=== PATIENT | female | born 1955 | race Caucasian/White ===

== ENCOUNTER 2017-10-20 14:36 | Inpatient (IN) | payer OTHER ==
[~2017-10-20] VITALS: Ht 172.7 cm; Wt 130.8 kg
[2017-10-20] MEDS ORDERED: PROPOFOL 100 ML IV ONE (14:43)
[2017-10-20] MEDS ORDERED: SODIUM CHLORIDE 0.9% 1,000 ML IV ONE (14:50)
[2017-10-20] MEDS ORDERED: PLEASE ENTER ALLERGIES MC SCH (15:00)
[2017-10-20] MEDS ORDERED: ETOMIDATE 20 MG/10 ML IV ONE (15:00)
[2017-10-20] MEDS ORDERED: SUCCINYLCHOLINE 20 MG/ML, 10ML IVPush ONE (15:00)
[2017-10-20] MEDS ORDERED: PLEASE ENTER HEIGHT AND WEIGHT MC SCH (15:00)
[2017-10-20] MEDS ORDERED: SODIUM CHLORIDE FLUSH 10ML SYR IVF ONE (15:00)
[2017-10-20 15:14] LABS: INTERNATIONAL NORMALIZED RATIO 1.52 (0.93-1.1); PROTHROMBIN TIME 15.5 Seconds (9.6-11.5)
[2017-10-20] MEDS ORDERED: EPINEPHRINE SYRINGE 0.1 MG/ML, 10ML ONE (15:14)
[2017-10-20] MEDS ORDERED: ETOMIDATE 20 MG/10 ML ONE (15:14)
[2017-10-20] MEDS ORDERED: SUCCINYLCHOLINE 20 MG/ML, 10ML ONE (15:14)
[2017-10-20] MEDS ORDERED: CODE BLUE RESPONSE XX ONE (15:15)
[2017-10-20 15:16] LABS: ALANINE AMINOTRANSFERASE 103 U/L (12-78); ALBUMIN 2.1 g/dL (3.4-5.0); CALCIUM 7.8 mg/dL (8.5-10.1); CHLORIDE 77 mmol/L (98-107)
[2017-10-20] MEDS: PROPOFOL 100 ML IV PRN (15:20)
[2017-10-20 15:21] LABS: ALKALINE PHOSPHATASE 566 U/L (45-117); BILIRUBIN,TOTAL 10.9 mg/dL (0.2-1.0); CREATININE 0.73 mg/dL (0.55-1.02); TOTAL PROTEIN 6.6 g/dL (6.4-8.2); TROPONIN I < 0.015 ng/mL (0.000-0.045)
[2017-10-20 15:22] LABS: BASOPHILS # (AUTO) 0.08 x10^3/uL (0-0.1); BASOPHILS % (AUTO) 1 % (0-1); EOSINOPHILS % (AUTO) 0 % (1-7); LYMPHOCYTES # (AUTO) 2.97 x10^3/uL (1-3.4); LYMPHOCYTES % (AUTO) 34 % (22-44); MD MORPH REVIEW ONLY; MEAN CORPUSCULAR HEMOGLOBIN 37.9 pg (27.0-34.8); MEAN CORPUSCULAR HGB CONC 34.6 g/dL (32.4-35.8); MEAN CORPUSCULAR VOLUME 109.6 fL (80-100); MEAN PLATELET VOLUME 8.1 fL (7.4-10.4); MONOCYTES % (AUTO) 1 % (2-9); NEUTROPHILS # (AUTO) 5.51 x10^3/uL (1.8-6.8); NEUTROPHILS % (AUTO) 64 % (42-75); PLATELET COUNT 76 x10^3/uL (130-400); RED CELL DISTRIBUTION WIDTH 15.8 % (9.6-15.2)
[2017-10-20 15:23] LABS: <PLATELET ESTIMATE> DECREASED; ANISOCYTOSIS 1+; LARGE PLATELETS 1+
[2017-10-20 15:31] LABS: ANION GAP 15 mmol/L (5-15)
[2017-10-20] MEDS ORDERED: HYDROmorphone 1 MG/ML, 1ML IV STA (15:49)
[2017-10-20] MEDS ORDERED: MIDAZOLAM 1 MG/ML, 5ML ONE (15:57)
[2017-10-20] MEDS ORDERED: HYDROmorphone 2 MG/ML, 1ML ONE (15:57)
[2017-10-20] MEDS ORDERED: MIDAZOLAM 1 MG/ML, 5ML IVP ONE (16:00)
[2017-10-20] MEDS ORDERED: VANCOMYCIN PER PHARMACY MC ONE (16:30)
[2017-10-20] MEDS ORDERED: PIPERACILLIN/TAZO/PMX 3.375GM 50 ML IVPB ONE (16:30)
[2017-10-20] MEDS ORDERED: DOPAMINE/D5W PMX 250 ML ONE (16:59)
[2017-10-20] MEDS ORDERED: VANCOMYCIN 1,800 MG in SODIUM CHLORIDE 0.9% 250 ML IV ONE (17:00)
[2017-10-20] MEDS ORDERED: POLYETHYLENE GLYCOL 17 GM PACKET PO PRN (17:00)
[2017-10-20] MEDS ORDERED: VANCOMYCIN PER PHARMACY MC PRN (17:00)
[2017-10-20] MEDS ORDERED: ACETAMINOPHEN 325 MG TABLET PO PRN (17:00)
[2017-10-20] MEDS ORDERED: OXYcodone IR 5MG TABLET PO PRN (17:00)
[2017-10-20] MEDS ORDERED: LORazepam 2 MG/ML, 1ML IVPush PRN (17:00)
[2017-10-20] MEDS ORDERED: ONDANSETRON 2MG/ML, 2ML IVPush PRN (17:00)
[2017-10-20] MEDS: DOPAMINE/D5W PMX 250 ML IV PRN (17:05)
[2017-10-20] MEDS ORDERED: LIDOCAINE-MPF 1%, 2ML ENDO PRN (17:30)
[2017-10-20] MEDS ORDERED: PHARMACY MAY ADJ FOR RENAL FX MC SCH (17:30)
[2017-10-20 17:37] LABS: TROPONIN I < 0.015 ng/mL (0.000-0.045)
[2017-10-20] MEDS ORDERED: OMNIPAQUE 350 MG/ML, 100ML BOTTLE ONE (17:56)
[2017-10-20] MEDS ORDERED: PIPERACILLIN/TAZO/PMX 3.375GM 50 ML ONE (17:59)
[2017-10-20] MEDS: PIPERACILLIN/TAZO/PMX 3.375GM 50 ML IV SCH ×2 (18:30→22:19)
[2017-10-20] MEDS ORDERED: methylPREDNISolone SOD SUCC 125 MG/2 ML ONE (18:32)
[2017-10-20] MEDS ORDERED: HEPARIN 5,000 UNITS/ML, 1ML ONE (18:32)
[2017-10-20] MEDS: methylPREDNISolone SOD SUCC 125 MG/2 ML IVPush SCH ×2 (18:33→22:19)
[2017-10-20] MEDS: HEPARIN 5,000 UNITS/ML, 1ML SQ SCH (18:33)
[2017-10-20 19:16] LABS: MICROSCOPIC INDICATED
[2017-10-20 19:28] LABS: CULTURE INDICATED? YES
[2017-10-20] MEDS: SODIUM CHLORIDE 0.9% 1,000 ML IV SCH (19:45)
[2017-10-20] MEDS ORDERED: PHARMACOKINETIC MONITORING MC PRN (20:00)
[2017-10-20] MEDS ORDERED: PHARMACOKINETIC CONSULTATION MC ONE (20:00)
[2017-10-20] MEDS: OCULAR LUBRICANT OPHTH OINT 3.5 GM EACHEYE SCH (21:00)
[2017-10-20] MEDS: LACTULOSE 10 GM/15 ML UDC PO SCH (21:31)
[2017-10-20] MEDS ORDERED: ALBUTEROL/IPRATROPIUM 2.5MG/0.5MG, 3 ML ONE (22:52)
[2017-10-20 23:23] LABS: TROPONIN I < 0.015 ng/mL (0.000-0.045)
[2017-10-21] MEDS: HEPARIN 5,000 UNITS/ML, 1ML SQ SCH ×2 (00:19→09:00)
[2017-10-21] MEDS: DOPAMINE/D5W PMX 250 ML IV PRN (00:22)
[2017-10-21] MEDS ORDERED: SODIUM CHLORIDE 3% 500 ML IV PRN (02:00)
[2017-10-21] MEDS: OCULAR LUBRICANT OPHTH OINT 3.5 GM EACHEYE SCH ×4 (02:32→20:51)
[2017-10-21] MEDS: SODIUM CHLORIDE 0.9% 1,000 ML IV SCH (02:32)
[2017-10-21] MEDS: PROPOFOL 100 ML IV PRN ×3 (02:59→20:59)
[2017-10-21 04:00] VITALS: BP 96/53
[2017-10-21 04:24] LABS: MEAN CORPUSCULAR HEMOGLOBIN 38.5 pg (27.0-34.8); MEAN CORPUSCULAR HGB CONC 35.7 g/dL (32.4-35.8); MEAN CORPUSCULAR VOLUME 107.7 fL (80-100); MEAN PLATELET VOLUME 7.8 fL (7.4-10.4); PLATELET COUNT 60 x10^3/uL (130-400); RED BLOOD COUNT 2.84 x10^6/uL (3.82-5.3); RED CELL DISTRIBUTION WIDTH 16.4 % (9.6-15.2)
[2017-10-21 04:31] LABS: ALANINE AMINOTRANSFERASE 96 U/L (12-78); ALBUMIN 1.8 g/dL (3.4-5.0); ANION GAP 10 mmol/L (5-15); CALCIUM 7.8 mg/dL (8.5-10.1); CHLORIDE 80 mmol/L (98-107); CREATININE 0.86 mg/dL (0.55-1.02)
[2017-10-21 04:35] LABS: ALKALINE PHOSPHATASE 440 U/L (45-117); BILIRUBIN,TOTAL 10.6 mg/dL (0.2-1.0); CHOL/HDL RATIO 9.8; CHOLESTEROL, TOTAL 127 mg/dL (140-239); HDL CHOL % 10 % (28-40); HDL CHOLESTEROL (DIRECT) 13 mg/dL (40-60); TOTAL PROTEIN 5.7 g/dL (6.4-8.2)
[2017-10-21 04:39] LABS: LDL CHOLESTEROL,CALCULATED 89 mg/dL (54-169); LDL/HDL RATIO 6.8 (0.5-3.0); TRIGLYCERIDES 124 mg/dL (50-200); VLDL CHOLESTEROL 25 mg/dL (0-25)
[2017-10-21] MEDS: methylPREDNISolone SOD SUCC 125 MG/2 ML IVPush SCH ×4 (04:57→22:30)
[2017-10-21] MEDS: PIPERACILLIN/TAZO/PMX 3.375GM 50 ML IV SCH ×4 (05:00→22:30)
[2017-10-21 05:14] LABS: BASOPHILS % (AUTO) 0 % (0-1); EOSINOPHILS % (AUTO) 0 % (1-7); LYMPHOCYTES # (AUTO) 0.54 x10^3/uL (1-3.4); LYMPHOCYTES % (AUTO) 17 % (22-44); MD SCAN; MONOCYTES # (AUTO) 0.09 x10^3/uL (0.2-0.8); MONOCYTES % (AUTO) 3 % (2-9); NEUTROPHILS # (AUTO) 2.48 x10^3/uL (1.8-6.8); NEUTROPHILS % (AUTO) 80 % (42-75)
[2017-10-21] MEDS ORDERED: SODIUM PHOSPHATE 20 MMOL in SODIUM CHLORIDE 0.9% 500 ML IV ONE (07:30)
[2017-10-21] MEDS ORDERED: DIAZEPAM 5 MG/ML, 2ML IVPush SCH (08:30)
[2017-10-21] MEDS: FLUCONAZOLE 200 MG/100 ML 100 ML IV SCH (08:30)
[2017-10-21] MEDS: FOLIC ACID 1 MG TABLET PO SCH ×2 (08:38→09:00)
[2017-10-21] MEDS: LACTULOSE 10 GM/15 ML UDC PO SCH ×3 (08:38→20:20)
[2017-10-21] MEDS: SENNA/DOCUSATE TABLET PO SCH ×2 (08:38→09:00)
[2017-10-21] MEDS: PANTOPRAZOLE 40 MG IV IVPush SCH (08:38)
[2017-10-21] MEDS: THIAMINE 100 MG in SODIUM CHLORIDE 0.9% 50 ML IV SCH (08:51)
[2017-10-21] MEDS: DIAZEPAM 5 MG/ML, 10ML VIAL IVPush SCH ×3 (09:33→20:51)
[2017-10-21] MEDS ORDERED: SODIUM CHLORIDE 3% 500 ML IV SCH (10:00)
[2017-10-21] MEDS: VANCOMYCIN 1,800 MG in SODIUM CHLORIDE 0.9% 250 ML IV SCH (10:29)
[2017-10-21] MEDS: LEVOTHYROXINE 100 MCG INJ IVPush SCH (12:06)
[2017-10-21] MEDS ORDERED: LEVO200T5 PO (13:30)
[2017-10-21] MEDS ORDERED: SODIUM CHLORIDE 0.9% 1,000 ML IV SCH (16:49)
[2017-10-21] MEDS ORDERED: LEVO175T5 PO (17:03)
[2017-10-22] MEDS: PROPOFOL 100 ML IV PRN ×4 (00:47→18:24)
[2017-10-22] MEDS: OCULAR LUBRICANT OPHTH OINT 3.5 GM EACHEYE SCH ×4 (03:03→21:05)
[2017-10-22] MEDS: DIAZEPAM 5 MG/ML, 10ML VIAL IVPush SCH ×4 (03:03→21:06)
[2017-10-22] MEDS: VANCOMYCIN 1,800 MG in SODIUM CHLORIDE 0.9% 250 ML IV SCH ×2 (03:52→22:42)
[2017-10-22 04:04] VITALS: BP 122/63
[2017-10-22 04:23] LABS: ANION GAP 10 mmol/L (5-15); CALCIUM 7.5 mg/dL (8.5-10.1); CHLORIDE 84 mmol/L (98-107)
[2017-10-22] MEDS: PIPERACILLIN/TAZO/PMX 3.375GM 50 ML IV SCH ×4 (04:45→22:59)
[2017-10-22] MEDS: methylPREDNISolone SOD SUCC 125 MG/2 ML IVPush SCH ×4 (04:45→22:59)
[2017-10-22] MEDS: DOPAMINE/D5W PMX 250 ML IV PRN ×2 (04:45→08:47)
[2017-10-22 04:49] LABS: MEAN CORPUSCULAR HGB CONC 35.8 g/dL (32.4-35.8); MEAN CORPUSCULAR VOLUME 108.9 fL (80-100); MEAN PLATELET VOLUME 7.7 fL (7.4-10.4); PLATELET COUNT 63 x10^3/uL (130-400); RED BLOOD COUNT 2.71 x10^6/uL (3.82-5.3); RED CELL DISTRIBUTION WIDTH 16.9 % (9.6-15.2)
[2017-10-22 04:50] LABS: BASOPHILS # (AUTO) 0.27 x10^3/uL (0-0.1); BASOPHILS % (AUTO) 3 % (0-1); EOSINOPHILS # (AUTO) 0.01 x10^3/uL (0-0.4); EOSINOPHILS % (AUTO) 0 % (1-7); LYMPHOCYTES # (AUTO) 1.06 x10^3/uL (1-3.4); LYMPHOCYTES % (AUTO) 12 % (22-44); MD SCAN; MONOCYTES # (AUTO) 0.04 x10^3/uL (0.2-0.8); MONOCYTES % (AUTO) 0 % (2-9); NEUTROPHILS # (AUTO) 7.53 x10^3/uL (1.8-6.8); NEUTROPHILS % (AUTO) 85 % (42-75)
[2017-10-22] MEDS: FLUCONAZOLE 200 MG/100 ML 100 ML IV SCH (08:49)
[2017-10-22] MEDS: THIAMINE 100 MG in SODIUM CHLORIDE 0.9% 50 ML IV SCH (08:49)
[2017-10-22] MEDS: PANTOPRAZOLE 40 MG IV IVPush SCH (08:49)
[2017-10-22] MEDS ORDERED: SODIUM CHLORIDE 3% 500 ML IV SCH ×2 (10:00)
[2017-10-22] MEDS: SODIUM CHLORIDE 3% 500 ML IV SCH (10:00)
[2017-10-22] MEDS: POTASSIUM CHLORIDE 10% 40 MEQ/30 ML UDC PO SCH ×2 (11:09→21:06)
[2017-10-22] MEDS: FOLIC ACID 1 MG TABLET PO SCH (11:10)
[2017-10-22] MEDS: METOCLOPRAMIDE 5 MG/ML, 2ML IV SCH ×3 (11:10→22:42)
[2017-10-22] MEDS: SENNA/DOCUSATE TABLET PO SCH (11:10)
[2017-10-22] MEDS: LACTULOSE 10 GM/15 ML UDC PO SCH ×2 (11:10→21:06)
[2017-10-22] MEDS: LEVOTHYROXINE 100 MCG INJ IVPush SCH (11:19)
[2017-10-22 21:59] LABS: VANCOMYCIN,TROUGH 25.8 mcg/mL (5.0-10.0)
[2017-10-23] MEDS: METOCLOPRAMIDE 5 MG/ML, 2ML IV SCH ×3 (03:45→16:39)
[2017-10-23] MEDS: OCULAR LUBRICANT OPHTH OINT 3.5 GM EACHEYE SCH ×4 (03:45→20:57)
[2017-10-23] MEDS: DIAZEPAM 5 MG/ML, 10ML VIAL IVPush SCH (03:45)
[2017-10-23 04:00] VITALS: BP 104/61
[2017-10-23] MEDS: PIPERACILLIN/TAZO/PMX 3.375GM 50 ML IV SCH ×4 (04:53→23:02)
[2017-10-23] MEDS: methylPREDNISolone SOD SUCC 125 MG/2 ML IVPush SCH ×4 (04:53→23:01)
[2017-10-23] MEDS: SODIUM CHLORIDE 3% 500 ML IV SCH (04:54)
[2017-10-23] MEDS: DOPAMINE/D5W PMX 250 ML IV PRN (04:55)
[2017-10-23] MEDS: VANCOMYCIN 1,800 MG in SODIUM CHLORIDE 0.9% 250 ML IV SCH (05:54)
[2017-10-23] MEDS: PROPOFOL 100 ML IV PRN (06:14)
[2017-10-23 08:21] LABS: ANION GAP 9 mmol/L (5-15); CALCIUM 7.5 mg/dL (8.5-10.1); CHLORIDE 91 mmol/L (98-107)
[2017-10-23 08:22] LABS: ALANINE AMINOTRANSFERASE 73 U/L (12-78); ALKALINE PHOSPHATASE 234 U/L (45-117); BILIRUBIN,TOTAL 13.4 mg/dL (0.2-1.0)
[2017-10-23 08:23] LABS: ALBUMIN 1.6 g/dL (3.4-5.0); TOTAL PROTEIN 5.6 g/dL (6.4-8.2)
[2017-10-23] MEDS ORDERED: BISACODYL 10 MG SUPP PR PRN (09:00)
[2017-10-23] MEDS: THIAMINE 100 MG in SODIUM CHLORIDE 0.9% 50 ML IV SCH (09:08)
[2017-10-23] MEDS: PANTOPRAZOLE 40 MG IV IVPush SCH (09:12)
[2017-10-23] MEDS: LEVOTHYROXINE 100 MCG INJ IVPush SCH (09:13)
[2017-10-23] MEDS: FOLIC ACID 1 MG TABLET PO SCH (09:13)
[2017-10-23] MEDS: LACTULOSE 10 GM/15 ML UDC PO SCH ×2 (09:13→20:50)
[2017-10-23] MEDS: SENNA/DOCUSATE TABLET PO SCH (09:14)
[2017-10-23] MEDS ORDERED: DIAZEPAM 5 MG/ML, 10ML VIAL IVPush SCH (09:30)
[2017-10-23 09:35] LABS: SODIUM,URINE RANDOM < 5 mmol/L
[2017-10-23 09:37] LABS: OSMOLALITY,URINE 253 mOsm/kg (500-850)
[2017-10-23] MEDS: FLUCONAZOLE 200 MG/100 ML 100 ML IV SCH (09:41)
[2017-10-23] MEDS: NOREPINEPHRINE 4 MG in SODIUM CHLORIDE 0.9% 246 ML IV PRN (17:49)
[2017-10-23] MEDS ORDERED: ALBUTEROL/IPRATROPIUM 2.5MG/0.5MG, 3 ML ONE (18:51)
[2017-10-23] MEDS: ALBUTEROL/IPRATROPIUM 2.5MG/0.5MG, 3 ML NPPB SCH (23:00)
[2017-10-24] MEDS: NOREPINEPHRINE 4 MG in SODIUM CHLORIDE 0.9% 246 ML IV PRN (02:51)
[2017-10-24] MEDS: OCULAR LUBRICANT OPHTH OINT 3.5 GM EACHEYE SCH ×4 (02:51→21:53)
[2017-10-24] MEDS: ALBUTEROL/IPRATROPIUM 2.5MG/0.5MG, 3 ML NPPB SCH ×6 (03:00→22:23)
[2017-10-24] MEDS: methylPREDNISolone SOD SUCC 125 MG/2 ML IVPush SCH ×4 (04:48→23:23)
[2017-10-24] MEDS: PIPERACILLIN/TAZO/PMX 3.375GM 50 ML IV SCH ×4 (04:48→23:24)
[2017-10-24 05:16] VITALS: BP 108/52
[2017-10-24 05:25] LABS: ALANINE AMINOTRANSFERASE 62 U/L (12-78); ALBUMIN 1.6 g/dL (3.4-5.0); ANION GAP 6 mmol/L (5-15); CALCIUM 7.5 mg/dL (8.5-10.1); CHLORIDE 93 mmol/L (98-107); CREATININE 1.57 mg/dL (0.55-1.02)
[2017-10-24 05:28] LABS: ALKALINE PHOSPHATASE 259 U/L (45-117); BILIRUBIN,TOTAL 14.1 mg/dL (0.2-1.0); MEAN CORPUSCULAR HEMOGLOBIN 38.8 pg (27.0-34.8); MEAN CORPUSCULAR HGB CONC 35.2 g/dL (32.4-35.8); MEAN CORPUSCULAR VOLUME 110.2 fL (80-100); MEAN PLATELET VOLUME 7.9 fL (7.4-10.4); PLATELET COUNT 51 x10^3/uL (130-400); RED BLOOD COUNT 2.18 x10^6/uL (3.82-5.3); RED CELL DISTRIBUTION WIDTH 16.3 % (9.6-15.2); TOTAL PROTEIN 5.1 g/dL (6.4-8.2)
[2017-10-24] MEDS: VANCOMYCIN 1,800 MG in SODIUM CHLORIDE 0.9% 250 ML IV SCH (05:30)
[2017-10-24 06:23] LABS: BASOPHILS # (AUTO) 0.03 x10^3/uL (0-0.1); BASOPHILS % (AUTO) 0 % (0-1); EOSINOPHILS % (AUTO) 0 % (1-7); LYMPHOCYTES % (AUTO) 13 % (22-44); MD SCAN; MONOCYTES # (AUTO) 0.43 x10^3/uL (0.2-0.8); MONOCYTES % (AUTO) 5 % (2-9); NEUTROPHILS # (AUTO) 6.78 x10^3/uL (1.8-6.8); NEUTROPHILS % (AUTO) 81 % (42-75)
[2017-10-24] MEDS ORDERED: SODIUM CHLORIDE 0.9% 500 ML IV ONE (08:30)
[2017-10-24] MEDS: SENNA/DOCUSATE TABLET PO SCH (09:00)
[2017-10-24] MEDS ORDERED: DIAZEPAM 5 MG/ML, 10ML VIAL IVPush PRN (09:30)
[2017-10-24] MEDS: FOLIC ACID 1 MG TABLET PO SCH (10:32)
[2017-10-24] MEDS: LACTULOSE 10 GM/15 ML UDC PO SCH ×2 (10:32→21:53)
[2017-10-24] MEDS: LEVOTHYROXINE 100 MCG INJ IVPush SCH (10:33)
[2017-10-24] MEDS: PANTOPRAZOLE 40 MG IV IVPush SCH (10:35)
[2017-10-24] MEDS: THIAMINE 100 MG in SODIUM CHLORIDE 0.9% 50 ML IV SCH (10:40)
[2017-10-24] MEDS: FLUCONAZOLE 200 MG/100 ML 100 ML IV SCH (10:46)
[2017-10-24] MEDS: SODIUM CHLORIDE 0.9% 1,000 ML IV SCH (14:44)
[2017-10-24] MEDS ORDERED: SODIUM CHLORIDE 0.9%, 500ML IVBOLUS ONE (15:00)
[2017-10-24] MEDS: ALBUMIN HUMAN 25% 100 ML IV SCH ×2 (18:15→19:53)
[2017-10-24 20:19] LABS: ANION GAP 8 mmol/L (5-15); CALCIUM 7.3 mg/dL (8.5-10.1); CHLORIDE 95 mmol/L (98-107)
[2017-10-25] MEDS: SODIUM CHLORIDE 0.9% 1,000 ML IV SCH ×3 (01:51→22:48)
[2017-10-25] MEDS: ALBUTEROL/IPRATROPIUM 2.5MG/0.5MG, 3 ML NPPB SCH ×3 (02:48→11:00)
[2017-10-25 04:00] VITALS: BP 116/59
[2017-10-25] MEDS: PIPERACILLIN/TAZO/PMX 3.375GM 50 ML IV SCH ×4 (04:49→22:54)
[2017-10-25] MEDS: OCULAR LUBRICANT OPHTH OINT 3.5 GM EACHEYE SCH ×4 (04:49→21:44)
[2017-10-25] MEDS: methylPREDNISolone SOD SUCC 125 MG/2 ML IVPush SCH (04:49)
[2017-10-25 05:48] LABS: CHLORIDE 95 mmol/L (98-107)
[2017-10-25 06:02] LABS: ALANINE AMINOTRANSFERASE 64 U/L (12-78); ALBUMIN 1.8 g/dL (3.4-5.0); ANION GAP 9 mmol/L (5-15); CALCIUM 7.5 mg/dL (8.5-10.1); CREATININE 1.82 mg/dL (0.55-1.02)
[2017-10-25 06:05] LABS: ALKALINE PHOSPHATASE 291 U/L (45-117); BILIRUBIN,TOTAL 14.9 mg/dL (0.2-1.0); TOTAL PROTEIN 5.4 g/dL (6.4-8.2); VANCOMYCIN,TROUGH 27.5 mcg/mL (5.0-10.0)
[2017-10-25] MEDS: PANTOPRAZOLE 40 MG IV IVPush SCH (08:32)
[2017-10-25] MEDS: ALBUMIN HUMAN 25% 100 ML IV SCH ×2 (08:32→20:23)
[2017-10-25] MEDS: THIAMINE 100 MG in SODIUM CHLORIDE 0.9% 50 ML IV SCH (08:32)
[2017-10-25] MEDS: FLUCONAZOLE 200 MG/100 ML 100 ML IV SCH (08:32)
[2017-10-25] MEDS: SENNA/DOCUSATE TABLET PO SCH (08:33)
[2017-10-25] MEDS: LEVOTHYROXINE 100 MCG INJ IVPush SCH (08:33)
[2017-10-25] MEDS: FOLIC ACID 1 MG TABLET PO SCH (08:33)
[2017-10-25] MEDS: LACTULOSE 10 GM/15 ML UDC PO SCH ×3 (08:33→21:44)
[2017-10-25] MEDS ORDERED: FUROSEMIDE 20 MG/2 ML ONE (09:55)
[2017-10-25] MEDS ORDERED: FUROSEMIDE 100 MG/10 ML IV ONE (10:00)
[2017-10-25] MEDS: MIDODRINE 5 MG TABLET PO SCH ×4 (10:32→21:44)
[2017-10-25] MEDS: OCTREOTIDE 100MCG/ML, 1ML (0.1MG/ML) SQ SCH ×2 (10:33→21:44)
[2017-10-25] MEDS ORDERED: RACEPINEPHRINE INH 2.25%, 0.5ML ONE (11:17)
[2017-10-25] MEDS ORDERED: RACEPINEPHRINE INH 2.25%, 0.5ML NPPB PRN (13:00)
[2017-10-25] MEDS ORDERED: DEXAMETHASONE 4 MG/ML, 1ML IVPush ONE (14:00)
[2017-10-25] MEDS ORDERED: LORazepam 2 MG/ML, 1ML IV PRN (14:00)
[2017-10-26] MEDS: OCULAR LUBRICANT OPHTH OINT 3.5 GM EACHEYE SCH ×4 (03:16→20:49)
[2017-10-26 03:38] LABS: MEAN CORPUSCULAR HEMOGLOBIN 38.8 pg (27.0-34.8); MEAN CORPUSCULAR HGB CONC 34.4 g/dL (32.4-35.8); MEAN CORPUSCULAR VOLUME 112.8 fL (80-100); MEAN PLATELET VOLUME 8.4 fL (7.4-10.4); PLATELET COUNT 52 x10^3/uL (130-400); RED BLOOD COUNT 2.04 x10^6/uL (3.82-5.3); RED CELL DISTRIBUTION WIDTH 17.6 % (9.6-15.2)
[2017-10-26 03:45] LABS: ANION GAP 8 mmol/L (5-15); CALCIUM 7.8 mg/dL (8.5-10.1); CHLORIDE 99 mmol/L (98-107)
[2017-10-26 03:48] LABS: CREATININE 1.92 mg/dL (0.55-1.02); VANCOMYCIN,RANDOM 22.2 mcg/mL
[2017-10-26 03:52] LABS: TRIGLYCERIDES 172 mg/dL (50-200)
[2017-10-26 04:00] VITALS: BP 127/77
[2017-10-26 04:26] LABS: BASOPHILS # (AUTO) 0.59 x10^3/uL (0-0.1); BASOPHILS % (AUTO) 7 % (0-1); EOSINOPHILS % (AUTO) 0 % (1-7); LYMPHOCYTES # (AUTO) 0.75 x10^3/uL (1-3.4); LYMPHOCYTES % (AUTO) 9 % (22-44); MD SCAN; MONOCYTES # (AUTO) 0.54 x10^3/uL (0.2-0.8); MONOCYTES % (AUTO) 6 % (2-9); NEUTROPHILS # (AUTO) 6.82 x10^3/uL (1.8-6.8); NEUTROPHILS % (AUTO) 78 % (42-75)
[2017-10-26] MEDS: PIPERACILLIN/TAZO/PMX 3.375GM 50 ML IV SCH ×4 (05:20→22:02)
[2017-10-26] MEDS: THIAMINE 100 MG in SODIUM CHLORIDE 0.9% 50 ML IV SCH (08:40)
[2017-10-26] MEDS: PANTOPRAZOLE 40 MG IV IVPush SCH (08:41)
[2017-10-26] MEDS: ALBUMIN HUMAN 25% 100 ML IV SCH ×2 (08:41→20:07)
[2017-10-26] MEDS: FLUCONAZOLE 200 MG/100 ML 100 ML IV SCH (08:41)
[2017-10-26] MEDS: LEVOTHYROXINE 100 MCG INJ IVPush SCH (08:45)
[2017-10-26] MEDS: SENNA/DOCUSATE TABLET PO SCH (08:46)
[2017-10-26] MEDS: SODIUM CHLORIDE 0.9% 1,000 ML IV SCH ×2 (08:55→20:08)
[2017-10-26] MEDS: OCTREOTIDE 100MCG/ML, 1ML (0.1MG/ML) SQ SCH ×2 (09:13→20:49)
[2017-10-26] MEDS ORDERED: PROPOFOL 100 ML IV PRN (11:15)
[2017-10-26 11:36] LABS: INTERNATIONAL NORMALIZED RATIO 1.35 (0.93-1.1)
[2017-10-26 11:41] LABS: ALANINE AMINOTRANSFERASE 65 U/L (12-78); ALBUMIN 2.7 g/dL (3.4-5.0); ANION GAP 10 mmol/L (5-15); CALCIUM 7.5 mg/dL (8.5-10.1); CHLORIDE 98 mmol/L (98-107); CREATININE 2.02 mg/dL (0.55-1.02)
[2017-10-26 11:44] LABS: ALKALINE PHOSPHATASE 253 U/L (45-117); TOTAL PROTEIN 6.1 g/dL (6.4-8.2)
[2017-10-26 11:46] LABS: BILIRUBIN,TOTAL 16.5 mg/dL (0.2-1.0)
[2017-10-26] MEDS: FOLIC ACID 1 MG TABLET PO SCH (12:10)
[2017-10-26] MEDS: LACTULOSE 10 GM/15 ML UDC PO SCH ×2 (12:10→20:49)
[2017-10-26] MEDS: MIDODRINE 5 MG TABLET PO SCH ×3 (12:10→20:49)
[2017-10-26] MEDS: prednisOLONE 15 MG/5 ML ORAL SOLN PO SCH (12:15)
[2017-10-26] MEDS ORDERED: MIDAZOLAM 1 MG/ML, 5ML ONE (15:28)
[2017-10-26] MEDS ORDERED: ETOMIDATE 20 MG/10 ML ONE (15:29)
[2017-10-26] MEDS: NOREPINEPHRINE 4 MG in SODIUM CHLORIDE 0.9% 246 ML IV PRN (19:41)
[2017-10-27] MEDS: PROPOFOL 100 ML IV PRN ×2 (00:28→14:25)
[2017-10-27] MEDS: NOREPINEPHRINE 4 MG in SODIUM CHLORIDE 0.9% 246 ML IV PRN (02:57)
[2017-10-27] MEDS: OCULAR LUBRICANT OPHTH OINT 3.5 GM EACHEYE SCH ×4 (02:57→19:46)
[2017-10-27 03:30] VITALS: BP 106/52
[2017-10-27] MEDS: PIPERACILLIN/TAZO/PMX 3.375GM 50 ML IV SCH ×4 (04:08→23:19)
[2017-10-27 04:51] LABS: ALANINE AMINOTRANSFERASE 64 U/L (12-78); ALBUMIN 2.5 g/dL (3.4-5.0); ANION GAP 9 mmol/L (5-15); CALCIUM 7.7 mg/dL (8.5-10.1); CHLORIDE 101 mmol/L (98-107); CREATININE 2.21 mg/dL (0.55-1.02)
[2017-10-27 04:54] LABS: ALKALINE PHOSPHATASE 234 U/L (45-117); TOTAL PROTEIN 5.5 g/dL (6.4-8.2); VANCOMYCIN,RANDOM 17.6 mcg/mL
[2017-10-27 04:59] LABS: BILIRUBIN,TOTAL 15.6 mg/dL (0.2-1.0); MEAN CORPUSCULAR HEMOGLOBIN 39.4 pg (27.0-34.8); MEAN CORPUSCULAR HGB CONC 34.8 g/dL (32.4-35.8); MEAN CORPUSCULAR VOLUME 113.1 fL (80-100); RED BLOOD COUNT 1.98 x10^6/uL (3.82-5.3); RED CELL DISTRIBUTION WIDTH 17.9 % (9.6-15.2)
[2017-10-27 05:38] LABS: PLATELET COUNT 60 x10^3/uL (130-400)
[2017-10-27 05:39] LABS: MD YES
[2017-10-27 05:41] LABS: ANISOCYTOSIS 1+; BAND#(MANUAL) 0.24 x10^3/uL; BANDS%(MANUAL) 2 % (0-7); LYMPH#(MANUAL) 0.94 x10^3/uL (1-3.4); LYMPHS% (MANUAL) 8 % (22-44); MONOS#(MANUAL) 0.59 x10^3/uL (0.3-2.7); MONOS% (MANUAL) 5 % (2-9); POLYCHROMASIA 1+; SEG#(MANUAL) 10.03 x10^3/uL (1.8-6.8); SEGS% (MANUAL) 85 % (42-75)
[2017-10-27 05:42] LABS: BASOPHILLIC STIPPLING 1+
[2017-10-27 05:43] LABS: <PLATELET ESTIMATE> DECREASED; <PLT MORPHOLOGY> NORMAL PLT MORPH
[2017-10-27] MEDS: SENNA/DOCUSATE TABLET PO SCH (07:53)
[2017-10-27] MEDS: FOLIC ACID 1 MG TABLET PO SCH (07:56)
[2017-10-27] MEDS: OCTREOTIDE 100MCG/ML, 1ML (0.1MG/ML) SQ SCH ×2 (07:56→19:47)
[2017-10-27] MEDS: MIDODRINE 5 MG TABLET PO SCH ×3 (07:56→19:47)
[2017-10-27] MEDS: FLUCONAZOLE 200 MG/100 ML 100 ML IV SCH (07:57)
[2017-10-27] MEDS: PANTOPRAZOLE 40 MG IV IVPush SCH (07:57)
[2017-10-27] MEDS: THIAMINE 100 MG in SODIUM CHLORIDE 0.9% 50 ML IV SCH (07:57)
[2017-10-27] MEDS: LEVOTHYROXINE 100 MCG INJ IVPush SCH (07:58)
[2017-10-27] MEDS: ALBUMIN HUMAN 25% 100 ML IV SCH ×2 (07:58→19:46)
[2017-10-27] MEDS: prednisOLONE 15 MG/5 ML ORAL SOLN PO SCH (07:58)
[2017-10-27] MEDS: LACTULOSE 10 GM/15 ML UDC PO SCH ×2 (07:58→19:46)
[2017-10-27] MEDS ORDERED: ALBUTEROL/IPRATROPIUM 2.5MG/0.5MG, 3 ML ONE (10:06)
[2017-10-27] MEDS: ALBUTEROL/IPRATROPIUM 2.5MG/0.5MG, 3 ML INLINE SCH ×4 (10:11→23:00)
[2017-10-27] MEDS ORDERED: VANCOMYCIN 1,800 MG in SODIUM CHLORIDE 0.9% 250 ML IV ONE (22:00)
[2017-10-28] MEDS: ALBUTEROL/IPRATROPIUM 2.5MG/0.5MG, 3 ML INLINE SCH ×6 (03:00→23:00)
[2017-10-28 04:00] VITALS: BP 95/55
[2017-10-28] MEDS: OCULAR LUBRICANT OPHTH OINT 3.5 GM EACHEYE SCH ×4 (04:12→19:40)
[2017-10-28] MEDS: PIPERACILLIN/TAZO/PMX 3.375GM 50 ML IV SCH ×4 (04:13→23:46)
[2017-10-28 04:35] LABS: MEAN CORPUSCULAR HEMOGLOBIN 39.1 pg (27.0-34.8); MEAN CORPUSCULAR HGB CONC 34.8 g/dL (32.4-35.8); MEAN CORPUSCULAR VOLUME 112.3 fL (80-100); MEAN PLATELET VOLUME 8.8 fL (7.4-10.4); PLATELET COUNT 56 x10^3/uL (130-400); RED BLOOD COUNT 1.87 x10^6/uL (3.82-5.3); RED CELL DISTRIBUTION WIDTH 18.1 % (9.6-15.2)
[2017-10-28 04:46] LABS: ALANINE AMINOTRANSFERASE 60 U/L (12-78); ALBUMIN 2.7 g/dL (3.4-5.0); ANION GAP 8 mmol/L (5-15); CALCIUM 7.9 mg/dL (8.5-10.1); CHLORIDE 103 mmol/L (98-107); CREATININE 2.23 mg/dL (0.55-1.02)
[2017-10-28 04:47] LABS: ALKALINE PHOSPHATASE 218 U/L (45-117); BILIRUBIN,TOTAL 13.4 mg/dL (0.2-1.0); TOTAL PROTEIN 5.5 g/dL (6.4-8.2)
[2017-10-28 04:59] LABS: MD SCAN
[2017-10-28 05:00] LABS: BASOPHILS # (AUTO) 1.72 x10^3/uL (0-0.1); BASOPHILS % (AUTO) 17 % (0-1); EOSINOPHILS # (AUTO) 0.11 x10^3/uL (0-0.4); EOSINOPHILS % (AUTO) 1 % (1-7); LYMPHOCYTES # (AUTO) 1.12 x10^3/uL (1-3.4); LYMPHOCYTES % (AUTO) 11 % (22-44); MONOCYTES # (AUTO) 0.08 x10^3/uL (0.2-0.8); MONOCYTES % (AUTO) 1 % (2-9); NEUTROPHILS # (AUTO) 6.85 x10^3/uL (1.8-6.8); NEUTROPHILS % (AUTO) 69 % (42-75)
[2017-10-28] MEDS: PANTOPRAZOLE 40 MG IV IVPush SCH (07:44)
[2017-10-28] MEDS: THIAMINE 100 MG in SODIUM CHLORIDE 0.9% 50 ML IV SCH (08:15)
[2017-10-28] MEDS: ALBUMIN HUMAN 25% 100 ML IV SCH ×2 (08:15→19:40)
[2017-10-28] MEDS: prednisOLONE 15 MG/5 ML ORAL SOLN PO SCH (08:16)
[2017-10-28] MEDS: SODIUM CHLORIDE 0.9% 1,000 ML IV SCH (09:15)
[2017-10-28] MEDS: METOCLOPRAMIDE 5 MG/ML, 2ML IV SCH ×3 (09:17→19:40)
[2017-10-28] MEDS: LEVOTHYROXINE 100 MCG INJ IVPush SCH (09:18)
[2017-10-28] MEDS: LACTULOSE 10 GM/15 ML UDC PO SCH ×2 (09:18→21:14)
[2017-10-28] MEDS: SENNA/DOCUSATE TABLET PO SCH (09:18)
[2017-10-28] MEDS: MIDODRINE 5 MG TABLET PO SCH ×3 (09:18→21:14)
[2017-10-28] MEDS: FOLIC ACID 1 MG TABLET PO SCH (09:18)
[2017-10-28] MEDS: KETOCONAZOLE CRM 2%, 15GM TP SCH ×2 (09:19→21:15)
[2017-10-28] MEDS: OCTREOTIDE 100MCG/ML, 1ML (0.1MG/ML) SQ SCH ×2 (09:19→21:15)
[2017-10-29] MEDS: ALBUTEROL/IPRATROPIUM 2.5MG/0.5MG, 3 ML INLINE SCH ×6 (03:00→22:50)
[2017-10-29] MEDS: METOCLOPRAMIDE 5 MG/ML, 2ML IV SCH ×4 (03:25→20:53)
[2017-10-29] MEDS: OCULAR LUBRICANT OPHTH OINT 3.5 GM EACHEYE SCH ×4 (03:25→20:54)
[2017-10-29 04:00] VITALS: BP 102/52
[2017-10-29] MEDS: SODIUM CHLORIDE 0.9% 1,000 ML IV SCH ×2 (04:09→13:45)
[2017-10-29] MEDS: PIPERACILLIN/TAZO/PMX 3.375GM 50 ML IV SCH ×4 (04:09→22:58)
[2017-10-29] MEDS: PROPOFOL 100 ML IV PRN (04:15)
[2017-10-29 04:39] LABS: ANION GAP 10 mmol/L (5-15); CALCIUM 8.1 mg/dL (8.5-10.1); CHLORIDE 104 mmol/L (98-107); CREATININE 2.24 mg/dL (0.55-1.02)
[2017-10-29 04:46] LABS: TRIGLYCERIDES 173 mg/dL (50-200)
[2017-10-29 04:53] LABS: MEAN CORPUSCULAR HEMOGLOBIN 39.5 pg (27.0-34.8); MEAN CORPUSCULAR VOLUME 112.7 fL (80-100); MEAN PLATELET VOLUME 9.5 fL (7.4-10.4); PLATELET COUNT 62 x10^3/uL (130-400); RED BLOOD COUNT 1.77 x10^6/uL (3.82-5.3); RED CELL DISTRIBUTION WIDTH 18.3 % (9.6-15.2)
[2017-10-29 05:38] LABS: MD YES
[2017-10-29 05:40] LABS: ANISOCYTOSIS 1+; BAND#(MANUAL) 0.23 x10^3/uL; BANDS%(MANUAL) 2 % (0-7); EOS#(MANUAL) 0.11 x10^3/uL (0.0-0.4); EOS% (MANUAL) 1 % (1-7); LYMPHS% (MANUAL) 14 % (22-44); METAMYELOCYTES# (MANUAL) 0.23 x10^3/uL (0-0); METAMYELOCYTES% (MANUAL) 2 % (0-1); MONOS#(MANUAL) 0.11 x10^3/uL (0.3-2.7); MONOS% (MANUAL) 1 % (2-9); POLYCHROMASIA 1+; SEG#(MANUAL) 9.12 x10^3/uL (1.8-6.8); SEGS% (MANUAL) 80 % (42-75)
[2017-10-29 05:41] LABS: <PLATELET ESTIMATE> DECREASED; <PLT MORPHOLOGY> NORMAL PLT MORPH
[2017-10-29 05:44] LABS: SPHEROCYTES 1+
[2017-10-29] MEDS: ALBUMIN HUMAN 25% 100 ML IV SCH ×2 (07:39→20:07)
[2017-10-29] MEDS: PANTOPRAZOLE 40 MG IV IVPush SCH (07:40)
[2017-10-29 08:10] VITALS: BP 101/51
[2017-10-29 08:30] VITALS: BP 105/53
[2017-10-29] MEDS: THIAMINE 100 MG in SODIUM CHLORIDE 0.9% 50 ML IV SCH (08:53)
[2017-10-29] MEDS: prednisOLONE 15 MG/5 ML ORAL SOLN PO SCH (08:53)
[2017-10-29] MEDS: LACTULOSE 10 GM/15 ML UDC PO SCH ×2 (09:07→20:54)
[2017-10-29] MEDS: FOLIC ACID 1 MG TABLET PO SCH (09:07)
[2017-10-29] MEDS: LEVOTHYROXINE 100 MCG INJ IVPush SCH (09:07)
[2017-10-29] MEDS: MIDODRINE 5 MG TABLET PO SCH ×3 (09:08→20:53)
[2017-10-29] MEDS: SENNA/DOCUSATE TABLET PO SCH (09:08)
[2017-10-29] MEDS: OCTREOTIDE 100MCG/ML, 1ML (0.1MG/ML) SQ SCH ×2 (09:09→20:54)
[2017-10-29] MEDS: KETOCONAZOLE CRM 2%, 15GM TP SCH ×2 (09:10→20:54)
[2017-10-29 11:45] VITALS: BP 141/67
[2017-10-30] MEDS: OCULAR LUBRICANT OPHTH OINT 3.5 GM EACHEYE SCH ×4 (02:41→21:53)
[2017-10-30] MEDS: METOCLOPRAMIDE 5 MG/ML, 2ML IV SCH ×4 (02:41→20:47)
[2017-10-30] MEDS: ALBUTEROL/IPRATROPIUM 2.5MG/0.5MG, 3 ML INLINE SCH ×6 (02:47→22:07)
[2017-10-30 04:00] VITALS: BP 131/62
[2017-10-30] MEDS: SODIUM CHLORIDE 0.9% 1,000 ML IV SCH (04:01)
[2017-10-30 04:34] LABS: MEAN CORPUSCULAR HGB CONC 34.3 g/dL (32.4-35.8); MEAN PLATELET VOLUME 9.3 fL (7.4-10.4); PLATELET COUNT 74 x10^3/uL (130-400); RED BLOOD COUNT 2.04 x10^6/uL (3.82-5.3); RED CELL DISTRIBUTION WIDTH 20.7 % (9.6-15.2)
[2017-10-30 04:40] LABS: ANION GAP 8 mmol/L (5-15); CALCIUM 8.2 mg/dL (8.5-10.1); CHLORIDE 107 mmol/L (98-107)
[2017-10-30] MEDS: PIPERACILLIN/TAZO/PMX 3.375GM 50 ML IV SCH ×4 (05:00→23:14)
[2017-10-30 05:04] LABS: CREATININE 1.85 mg/dL (0.55-1.02)
[2017-10-30 05:05] LABS: ALANINE AMINOTRANSFERASE 58 U/L (12-78); ALKALINE PHOSPHATASE 208 U/L (45-117); BILIRUBIN, DIRECT 8.9 mg/dL (0.1-0.2); BILIRUBIN,INDIRECT 2.9 mg/dL (0.0-2.0); BILIRUBIN,TOTAL 11.8 mg/dL (0.2-1.0)
[2017-10-30 05:19] LABS: BASOPHILS # (AUTO) 1.16 x10^3/uL (0-0.1); BASOPHILS % (AUTO) 9 % (0-1); EOSINOPHILS # (AUTO) 0.03 x10^3/uL (0-0.4); EOSINOPHILS % (AUTO) 0 % (1-7); LYMPHOCYTES # (AUTO) 0.88 x10^3/uL (1-3.4); LYMPHOCYTES % (AUTO) 7 % (22-44); MD SCAN; MONOCYTES # (AUTO) 0.03 x10^3/uL (0.2-0.8); MONOCYTES % (AUTO) 0 % (2-9); NEUTROPHILS # (AUTO) 10.95 x10^3/uL (1.8-6.8); NEUTROPHILS % (AUTO) 84 % (42-75)
[2017-10-30] MEDS: SENNA/DOCUSATE TABLET PO SCH (09:00)
[2017-10-30] MEDS: THIAMINE 100 MG in SODIUM CHLORIDE 0.9% 50 ML IV SCH (09:01)
[2017-10-30] MEDS: LEVOTHYROXINE 100 MCG INJ IVPush SCH (09:01)
[2017-10-30] MEDS: prednisOLONE 15 MG/5 ML ORAL SOLN PO SCH (09:02)
[2017-10-30] MEDS: MIDODRINE 5 MG TABLET PO SCH ×3 (09:02→21:54)
[2017-10-30] MEDS: ESOMEPRAZOLE 40 MG IV IVPush SCH (09:02)
[2017-10-30] MEDS: FOLIC ACID 1 MG TABLET PO SCH (09:02)
[2017-10-30] MEDS: KETOCONAZOLE CRM 2%, 15GM TP SCH ×2 (09:03→21:53)
[2017-10-30] MEDS: LACTULOSE 10 GM/15 ML UDC PO SCH ×2 (09:03→20:41)
[2017-10-30] MEDS: OCTREOTIDE 100MCG/ML, 1ML (0.1MG/ML) SQ SCH ×2 (09:03→21:54)
[2017-10-30] MEDS: ALBUMIN HUMAN 25% 100 ML IV SCH ×2 (10:29→19:48)
[2017-10-30] MEDS: CHOLESTYRAMINE LIGHT 4GM PACKET PO SCH ×2 (11:48→20:41)
[2017-10-31] MEDS: ALBUTEROL/IPRATROPIUM 2.5MG/0.5MG, 3 ML INLINE SCH ×6 (02:00→22:18)
[2017-10-31] MEDS: METOCLOPRAMIDE 5 MG/ML, 2ML IV SCH ×4 (02:46→19:50)
[2017-10-31] MEDS: OCULAR LUBRICANT OPHTH OINT 3.5 GM EACHEYE SCH ×4 (02:46→19:51)
[2017-10-31 04:00] VITALS: BP 141/59
[2017-10-31 04:56] LABS: ANION GAP 8 mmol/L (5-15); CALCIUM 8.4 mg/dL (8.5-10.1); CHLORIDE 111 mmol/L (98-107); CREATININE 1.68 mg/dL (0.55-1.02)
[2017-10-31] MEDS: PIPERACILLIN/TAZO/PMX 3.375GM 50 ML IV SCH ×4 (05:08→23:50)
[2017-10-31 05:14] LABS: MEAN CORPUSCULAR HEMOGLOBIN 37.6 pg (27.0-34.8); MEAN CORPUSCULAR VOLUME 110.9 fL (80-100); PLATELET COUNT 80 x10^3/uL (130-400); RED BLOOD COUNT 1.89 x10^6/uL (3.82-5.3)
[2017-10-31 05:51] LABS: MD YES
[2017-10-31 05:53] LABS: BAND#(MANUAL) 0.13 x10^3/uL; BANDS%(MANUAL) 1 % (0-7); LYMPH#(MANUAL) 1.06 x10^3/uL (1-3.4); LYMPHS% (MANUAL) 8 % (22-44); MONOS% (MANUAL) 3 % (2-9)
[2017-10-31 05:54] LABS: ANISOCYTOSIS 1+; METAMYELOCYTES# (MANUAL) 0.13 x10^3/uL (0-0); METAMYELOCYTES% (MANUAL) 1 % (0-1); POLYCHROMASIA 1+; SEG#(MANUAL) 11.48 x10^3/uL (1.8-6.8); SEGS% (MANUAL) 87 % (42-75)
[2017-10-31 05:55] LABS: <PLATELET ESTIMATE> DECREASED; <PLT MORPHOLOGY> NORMAL PLT MORPH
[2017-10-31] MEDS: ALBUMIN HUMAN 25% 100 ML IV SCH ×2 (07:50→19:50)
[2017-10-31] MEDS: THIAMINE 100 MG in SODIUM CHLORIDE 0.9% 50 ML IV SCH (08:50)
[2017-10-31] MEDS: ESOMEPRAZOLE 40 MG IV IVPush SCH (08:50)
[2017-10-31] MEDS: LACTULOSE 10 GM/15 ML UDC PO SCH (08:53)
[2017-10-31] MEDS: FOLIC ACID 1 MG TABLET PO SCH (08:53)
[2017-10-31] MEDS: MIDODRINE 5 MG TABLET PO SCH ×3 (08:57→21:33)
[2017-10-31] MEDS: SENNA/DOCUSATE TABLET PO SCH (08:57)
[2017-10-31] MEDS: KETOCONAZOLE CRM 2%, 15GM TP SCH ×2 (08:58→19:52)
[2017-10-31] MEDS: prednisOLONE 15 MG/5 ML ORAL SOLN PO SCH (08:59)
[2017-10-31] MEDS: CHOLESTYRAMINE LIGHT 4GM PACKET PO SCH ×2 (09:44→19:50)
[2017-10-31] MEDS: LEVOTHYROXINE 100 MCG INJ IVPush SCH (09:44)
[2017-10-31] MEDS: OCTREOTIDE 100MCG/ML, 1ML (0.1MG/ML) SQ SCH ×2 (09:44→19:51)
[2017-11-01] MEDS: ALBUTEROL/IPRATROPIUM 2.5MG/0.5MG, 3 ML INLINE SCH ×6 (02:07→21:54)
[2017-11-01] MEDS: OCULAR LUBRICANT OPHTH OINT 3.5 GM EACHEYE SCH ×4 (02:44→19:18)
[2017-11-01] MEDS: METOCLOPRAMIDE 5 MG/ML, 2ML IV SCH ×4 (02:44→19:18)
[2017-11-01 04:16] VITALS: BP 123/71
[2017-11-01] MEDS ORDERED: DIGOXIN 0.25 MG/ML, 2ML IVPush ONE (04:30)
[2017-11-01] MEDS: PIPERACILLIN/TAZO/PMX 3.375GM 50 ML IV SCH ×4 (04:32→22:24)
[2017-11-01 04:36] LABS: ALANINE AMINOTRANSFERASE 46 U/L (12-78); ALBUMIN 3.2 g/dL (3.4-5.0); ANION GAP 3 mmol/L (5-15); CALCIUM 7.8 mg/dL (8.5-10.1); CHLORIDE 112 mmol/L (98-107)
[2017-11-01 04:38] LABS: TRIGLYCERIDES 169 mg/dL (50-200)
[2017-11-01 04:39] LABS: ALKALINE PHOSPHATASE 159 U/L (45-117); BILIRUBIN,TOTAL 9.1 mg/dL (0.2-1.0); TOTAL PROTEIN 6.6 g/dL (6.4-8.2)
[2017-11-01 04:48] LABS: MEAN CORPUSCULAR HEMOGLOBIN 37.5 pg (27.0-34.8); MEAN CORPUSCULAR HGB CONC 33.3 g/dL (32.4-35.8); MEAN CORPUSCULAR VOLUME 112.8 fL (80-100); PLATELET COUNT 69 x10^3/uL (130-400); RED BLOOD COUNT 1.86 x10^6/uL (3.82-5.3); RED CELL DISTRIBUTION WIDTH 20.6 % (9.6-15.2)
[2017-11-01 05:58] LABS: MD YES
[2017-11-01 05:59] LABS: BAND#(MANUAL) 0.41 x10^3/uL; BANDS%(MANUAL) 4 % (0-7); HYPOCHROMIA 1+; LYMPH#(MANUAL) 0.62 x10^3/uL (1-3.4); LYMPHS% (MANUAL) 6 % (22-44); METAMYELOCYTES% (MANUAL) 1 % (0-1); SEG#(MANUAL) 9.17 x10^3/uL (1.8-6.8); SEGS% (MANUAL) 89 % (42-75)
[2017-11-01 06:00] LABS: ANISOCYTOSIS 1+; POLYCHROMASIA 1+
[2017-11-01 06:01] LABS: <PLATELET ESTIMATE> DECREASED; <PLT MORPHOLOGY> NORMAL PLT MORPH
[2017-11-01] MEDS: prednisOLONE 15 MG/5 ML ORAL SOLN PO SCH (08:21)
[2017-11-01] MEDS: ESOMEPRAZOLE 40 MG IV IVPush SCH (08:21)
[2017-11-01] MEDS: THIAMINE 100 MG in SODIUM CHLORIDE 0.9% 50 ML IV SCH (08:21)
[2017-11-01] MEDS: MIDODRINE 5 MG TABLET PO SCH ×3 (08:22→20:17)
[2017-11-01] MEDS: LEVOTHYROXINE 100 MCG INJ IVPush SCH (08:22)
[2017-11-01] MEDS: OCTREOTIDE 100MCG/ML, 1ML (0.1MG/ML) SQ SCH ×2 (08:22→20:17)
[2017-11-01] MEDS: FOLIC ACID 1 MG TABLET PO SCH (08:22)
[2017-11-01] MEDS: SENNA/DOCUSATE TABLET PO SCH (08:22)
[2017-11-01] MEDS: KETOCONAZOLE CRM 2%, 15GM TP SCH ×2 (08:23→22:24)
[2017-11-01] MEDS: CHOLESTYRAMINE LIGHT 4GM PACKET PO SCH ×2 (11:00→19:17)
[2017-11-01] MEDS: ALBUMIN HUMAN 25% 100 ML IV SCH ×2 (11:00→19:18)
[2017-11-02] VITALS (12 sets, daily range): BP systolic 135–144; BP diastolic 57–78
[2017-11-02] MEDS: ALBUTEROL/IPRATROPIUM 2.5MG/0.5MG, 3 ML INLINE SCH ×6 (02:07→22:56)
[2017-11-02] MEDS: METOCLOPRAMIDE 5 MG/ML, 2ML IV SCH ×4 (02:47→21:19)
[2017-11-02] MEDS: OCULAR LUBRICANT OPHTH OINT 3.5 GM EACHEYE SCH ×4 (02:47→21:19)
[2017-11-02] MEDS: PIPERACILLIN/TAZO/PMX 3.375GM 50 ML IV SCH ×4 (04:42→22:20)
[2017-11-02 05:53] LABS: MEAN CORPUSCULAR HEMOGLOBIN 37.9 pg (27.0-34.8); MEAN CORPUSCULAR HGB CONC 33.7 g/dL (32.4-35.8); MEAN CORPUSCULAR VOLUME 112.4 fL (80-100); PLATELET COUNT 72 x10^3/uL (130-400); RED CELL DISTRIBUTION WIDTH 20.8 % (9.6-15.2)
[2017-11-02 05:54] LABS: ANION GAP 5 mmol/L (5-15); CALCIUM 8.3 mg/dL (8.5-10.1); CHLORIDE 114 mmol/L (98-107)
[2017-11-02 05:56] LABS: CREATININE 1.37 mg/dL (0.55-1.02)
[2017-11-02 06:17] LABS: MD YES
[2017-11-02 06:19] LABS: <PLATELET ESTIMATE> DECREASED; <PLT MORPHOLOGY> NORMAL PLT MORPH; ANISOCYTOSIS 1+; BAND#(MANUAL) 0.16 x10^3/uL; BANDS%(MANUAL) 2 % (0-7); HYPOCHROMIA 1+; LYMPH#(MANUAL) 1.56 x10^3/uL (1-3.4); LYMPHS% (MANUAL) 20 % (22-44); MYELOCYTES# (MANUAL) 0.16 x10^3/uL (0-0); MYELOCYTES% (MANUAL) 2 % (0-0); POLYCHROMASIA 1+; SEG#(MANUAL) 5.93 x10^3/uL (1.8-6.8); SEGS% (MANUAL) 76 % (42-75)
[2017-11-02] MEDS: SENNA/DOCUSATE TABLET PO SCH (09:00)
[2017-11-02] MEDS: THIAMINE 100 MG in SODIUM CHLORIDE 0.9% 50 ML IV SCH (09:18)
[2017-11-02] MEDS: prednisOLONE 15 MG/5 ML ORAL SOLN PO SCH (09:18)
[2017-11-02] MEDS: ALBUMIN HUMAN 25% 100 ML IV SCH ×2 (09:18→21:18)
[2017-11-02] MEDS: KETOCONAZOLE CRM 2%, 15GM TP SCH ×2 (09:18→21:19)
[2017-11-02] MEDS: CHOLESTYRAMINE LIGHT 4GM PACKET PO SCH ×2 (09:19→19:05)
[2017-11-02] MEDS: ESOMEPRAZOLE 40 MG IV IVPush SCH (09:19)
[2017-11-02] MEDS: FOLIC ACID 1 MG TABLET PO SCH (09:19)
[2017-11-02] MEDS: LEVOTHYROXINE 100 MCG INJ IVPush SCH (09:19)
[2017-11-02] MEDS: MIDODRINE 5 MG TABLET PO SCH ×3 (09:19→21:19)
[2017-11-02] MEDS: OCTREOTIDE 100MCG/ML, 1ML (0.1MG/ML) SQ SCH ×2 (09:20→21:19)
[2017-11-03] MEDS: ALBUTEROL/IPRATROPIUM 2.5MG/0.5MG, 3 ML INLINE SCH ×6 (02:05→22:28)
[2017-11-03] MEDS: OCULAR LUBRICANT OPHTH OINT 3.5 GM EACHEYE SCH ×4 (03:20→21:10)
[2017-11-03] MEDS: METOCLOPRAMIDE 5 MG/ML, 2ML IV SCH ×4 (03:21→21:13)
[2017-11-03] MEDS: PIPERACILLIN/TAZO/PMX 3.375GM 50 ML IV SCH ×4 (04:20→22:54)
[2017-11-03 04:21] VITALS: BP 134/57
[2017-11-03 05:46] LABS: CHLORIDE 118 mmol/L (98-107)
[2017-11-03 05:55] LABS: ALANINE AMINOTRANSFERASE 60 U/L (12-78); ALBUMIN 3.1 g/dL (3.4-5.0); ALKALINE PHOSPHATASE 135 U/L (45-117); ANION GAP 6 mmol/L (5-15); BILIRUBIN,TOTAL 9.5 mg/dL (0.2-1.0); CALCIUM 8.2 mg/dL (8.5-10.1); CREATININE 1.29 mg/dL (0.55-1.02); TOTAL PROTEIN 6.7 g/dL (6.4-8.2)
[2017-11-03 06:39] LABS: MEAN CORPUSCULAR HEMOGLOBIN 36.1 pg (27.0-34.8); MEAN CORPUSCULAR HGB CONC 33.9 g/dL (32.4-35.8); MEAN CORPUSCULAR VOLUME 106.4 fL (80-100); MEAN PLATELET VOLUME 9.2 fL (7.4-10.4); PLATELET COUNT 59 x10^3/uL (130-400); RED BLOOD COUNT 2.22 x10^6/uL (3.82-5.3); RED CELL DISTRIBUTION WIDTH 24.6 % (9.6-15.2)
[2017-11-03 06:55] LABS: MD YES
[2017-11-03 06:57] LABS: <PLATELET ESTIMATE> DECREASED; <PLT MORPHOLOGY> NORMAL PLT MORPH; BAND#(MANUAL) 0.28 x10^3/uL; BANDS%(MANUAL) 4 % (0-7); EOS#(MANUAL) 0.07 x10^3/uL (0.0-0.4); EOS% (MANUAL) 1 % (1-7); HYPOCHROMIA 1+; LYMPH#(MANUAL) 1.05 x10^3/uL (1-3.4); LYMPHS% (MANUAL) 15 % (22-44); METAMYELOCYTES# (MANUAL) 0.14 x10^3/uL (0-0); METAMYELOCYTES% (MANUAL) 2 % (0-1); MONOS#(MANUAL) 0.07 x10^3/uL (0.3-2.7); MONOS% (MANUAL) 1 % (2-9); MYELOCYTES# (MANUAL) 0.07 x10^3/uL (0-0); MYELOCYTES% (MANUAL) 1 % (0-0); POLYCHROMASIA 1+; SEG#(MANUAL) 5.32 x10^3/uL (1.8-6.8); SEGS% (MANUAL) 76 % (42-75)
[2017-11-03 07:00] LABS: ANISOCYTOSIS 2+
[2017-11-03] MEDS: CHOLESTYRAMINE LIGHT 4GM PACKET PO SCH ×2 (07:50→21:14)
[2017-11-03] MEDS: SENNA/DOCUSATE TABLET PO SCH (07:50)
[2017-11-03] MEDS: ALBUMIN HUMAN 25% 100 ML IV SCH ×2 (07:50→21:10)
[2017-11-03] MEDS: prednisOLONE 15 MG/5 ML ORAL SOLN PO SCH (07:50)
[2017-11-03] MEDS: THIAMINE 100 MG in SODIUM CHLORIDE 0.9% 50 ML IV SCH (07:50)
[2017-11-03] MEDS: MIDODRINE 5 MG TABLET PO SCH ×3 (07:51→22:54)
[2017-11-03] MEDS: FOLIC ACID 1 MG TABLET PO SCH (07:51)
[2017-11-03] MEDS: OCTREOTIDE 100MCG/ML, 1ML (0.1MG/ML) SQ SCH ×2 (07:51→21:13)
[2017-11-03] MEDS: LEVOTHYROXINE 100 MCG INJ IVPush SCH (07:52)
[2017-11-03] MEDS: KETOCONAZOLE CRM 2%, 15GM TP SCH ×2 (07:52→21:13)
[2017-11-03] MEDS: ESOMEPRAZOLE 40 MG IV IVPush SCH (07:52)
[2017-11-04] MEDS: ALBUTEROL/IPRATROPIUM 2.5MG/0.5MG, 3 ML INLINE SCH ×2 (02:53→06:30)
[2017-11-04] MEDS: METOCLOPRAMIDE 5 MG/ML, 2ML IV SCH ×2 (03:43→09:34)
[2017-11-04] MEDS: OCULAR LUBRICANT OPHTH OINT 3.5 GM EACHEYE SCH ×2 (03:43→09:34)
[2017-11-04 03:45] VITALS: BP 126/53
[2017-11-04 04:51] LABS: MEAN CORPUSCULAR HEMOGLOBIN 36.3 pg (27.0-34.8); MEAN CORPUSCULAR HGB CONC 33.7 g/dL (32.4-35.8); MEAN CORPUSCULAR VOLUME 107.7 fL (80-100); RED BLOOD COUNT 2.07 x10^6/uL (3.82-5.3); RED CELL DISTRIBUTION WIDTH 23.8 % (9.6-15.2)
[2017-11-04 04:56] LABS: ALANINE AMINOTRANSFERASE 68 U/L (12-78); ALBUMIN 3.3 g/dL (3.4-5.0); ANION GAP 6 mmol/L (5-15); CALCIUM 7.8 mg/dL (8.5-10.1); CHLORIDE 119 mmol/L (98-107)
[2017-11-04 04:58] LABS: ALKALINE PHOSPHATASE 124 U/L (45-117); BILIRUBIN,TOTAL 9.3 mg/dL (0.2-1.0); CREATININE 1.37 mg/dL (0.55-1.02); TOTAL PROTEIN 6.8 g/dL (6.4-8.2)
[2017-11-04 05:00] LABS: TRIGLYCERIDES 161 mg/dL (50-200)
[2017-11-04] MEDS: PIPERACILLIN/TAZO/PMX 3.375GM 50 ML IV SCH ×2 (05:16→11:48)
[2017-11-04 05:25] LABS: MD YES
[2017-11-04 05:27] LABS: ANISOCYTOSIS 1+; BAND#(MANUAL) 0.77 x10^3/uL; BANDS%(MANUAL) 11 % (0-7); LYMPH#(MANUAL) 1.54 x10^3/uL (1-3.4); LYMPHS% (MANUAL) 22 % (22-44); METAMYELOCYTES# (MANUAL) 0.07 x10^3/uL (0-0); METAMYELOCYTES% (MANUAL) 1 % (0-1); NRBC % (MANUAL) 1 % (0-1); SEG#(MANUAL) 4.62 x10^3/uL (1.8-6.8); SEGS% (MANUAL) 66 % (42-75)
[2017-11-04 05:28] LABS: <PLATELET ESTIMATE> DECREASED; <PLT MORPHOLOGY> NORMAL PLT MORPH; BASOPHILLIC STIPPLING 1+; POLYCHROMASIA 1+
[2017-11-04 05:29] LABS: MEAN PLATELET VOLUME 9.5 fL (7.4-10.4); PLATELET COUNT 53 x10^3/uL (130-400)
[2017-11-04] MEDS: THIAMINE 100 MG in SODIUM CHLORIDE 0.9% 50 ML IV SCH (07:48)
[2017-11-04] MEDS: ESOMEPRAZOLE 40 MG IV IVPush SCH (07:48)
[2017-11-04] MEDS: ALBUMIN HUMAN 25% 100 ML IV SCH (08:34)
[2017-11-04] MEDS: SENNA/DOCUSATE TABLET PO SCH (09:00)
[2017-11-04] MEDS: FOLIC ACID 1 MG TABLET PO SCH (09:33)
[2017-11-04] MEDS: MIDODRINE 5 MG TABLET PO SCH (09:34)
[2017-11-04] MEDS: CHOLESTYRAMINE LIGHT 4GM PACKET PO SCH (09:34)
[2017-11-04] MEDS: LEVOTHYROXINE 100 MCG INJ IVPush SCH (09:34)
[2017-11-04] MEDS: OCTREOTIDE 100MCG/ML, 1ML (0.1MG/ML) SQ SCH (09:35)
[2017-11-04] MEDS: prednisOLONE 15 MG/5 ML ORAL SOLN PO SCH (09:35)
[2017-11-04] MEDS: KETOCONAZOLE CRM 2%, 15GM TP SCH (09:35)
[2017-11-04] MEDS ORDERED: LORazepam 2 MG/ML, 1ML IV ONE (13:30)
[2017-11-04] MEDS ORDERED: LORazepam 2 MG/ML, 1ML IV PRN (13:30)
[2017-11-04] MEDS ORDERED: morphine SULFATE 10 MG/ML, 1ML IV ONE (13:30)
[2017-11-04] MEDS ORDERED: ATROPINE OPHTH SOLN 1%, 2ML PO PRN (13:30)
== END 2017-11-04 14:10 | disposition expired | DRG 853 ==
LOC: ED 17:14 → EDIP 17:30 → CCU 19:06
PROVIDERS: ADMIT Internal Medicine; ATTEND Internal Medicine
PROC: 5A12012 Performance of Cardiac Output, Single, Manual (ICD-10-PCS; 2017-10-20)
PROC: 5A1945Z Respiratory Ventilation, 24-96 Consecutive Hours (ICD-10-PCS; 2017-10-20)
PROC: 0BH17EZ Insertion of Endotracheal Airway into Trachea, Via Natural or Artificial Opening (ICD-10-PCS; 2017-10-20)
PROC: 0T9B70Z Drainage of Bladder with Drainage Device, Via Natural or Artificial Opening (ICD-10-PCS; 2017-10-20)
PROC: 02HV33Z Insertion of Infusion Device into Superior Vena Cava, Percutaneous Approach (ICD-10-PCS; 2017-10-20)
PROC: 0W9G3ZZ Drainage of Peritoneal Cavity, Percutaneous Approach (ICD-10-PCS; 2017-10-24)
PROC: 5A1955Z Respiratory Ventilation, Greater than 96 Consecutive Hours (ICD-10-PCS; principal; 2017-10-26)
PROC: 0B9F8ZZ Drainage of Right Lower Lung Lobe, Via Natural or Artificial Opening Endoscopic (ICD-10-PCS; 2017-10-26)
PROC: 0BH17EZ Insertion of Endotracheal Airway into Trachea, Via Natural or Artificial Opening (ICD-10-PCS; 2017-10-26)
PROC: 0B918ZZ Drainage of Trachea, Via Natural or Artificial Opening Endoscopic (ICD-10-PCS; 2017-10-26)
PROC: 30233N1 Transfusion of Nonautologous Red Blood Cells into Peripheral Vein, Percutaneous Approach (ICD-10-PCS; 2017-10-29)
DX: A41.59 Other Gram-negative sepsis (principal); J96.00 Acute respiratory failure, unspecified whether with hypoxia or hypercapnia; K72.00 Acute and subacute hepatic failure without coma; I46.9 Cardiac arrest, cause unspecified; E43 Unspecified severe protein-calorie malnutrition; J81.1 Chronic pulmonary edema; N17.0 Acute kidney failure with tubular necrosis; G93.41 Metabolic encephalopathy; R65.21 Severe sepsis with septic shock; D68.9 Coagulation defect, unspecified; E87.2 Acidosis; E87.0 Hyperosmolality and hypernatremia; E87.1 Hypo-osmolality and hyponatremia; I49.2 Junctional premature depolarization; J44.1 Chronic obstructive pulmonary disease with (acute) exacerbation; J98.11 Atelectasis; Z99.11 Dependence on respirator [ventilator] status; Z68.41 Body mass index [BMI] 40.0-44.9, adult; E66.01 Morbid (severe) obesity due to excess calories; D69.6 Thrombocytopenia, unspecified; I27.20 Pulmonary hypertension, unspecified; B37.2 Candidiasis of skin and nail; D64.9 Anemia, unspecified; E03.9 Hypothyroidism, unspecified; F10.10 Alcohol abuse, uncomplicated; F17.210 Nicotine dependence, cigarettes, uncomplicated; G47.33 Obstructive sleep apnea (adult) (pediatric); H05.20 Unspecified exophthalmos; H16.001 Unspecified corneal ulcer, right eye; I48.91 Unspecified atrial fibrillation; I87.8 Other specified disorders of veins; K31.84 Gastroparesis; K52.9 Noninfective gastroenteritis and colitis, unspecified; K70.11 Alcoholic hepatitis with ascites; T68.XXXA Hypothermia, initial encounter; K74.60 Unspecified cirrhosis of liver; R29.6 Repeated falls; Z51.5 Encounter for palliative care; Z66 Do not resuscitate; K76.0 Fatty (change of) liver, not elsewhere classified; Z82.3 Family history of stroke; Z82.49 Family history of ischemic heart disease and other diseases of the circulatory system; Z80.3 Family history of malignant neoplasm of breast
CPT/HCPCS: 31500; 31622; 36415; 36600; 49083; 51102; 70450; 70490; 71010; 71045; 71275; 74177; 76700; 80048; 80053; 80061; 80076; 80202; 81001; 82042; 82140; 82533; 82570; 82607; 82746; 82803; 82962; 83605; 83690; 83735; 83935; 84100; 84295; 84300; 84443; 84478; 84484; 85014; 85018; 85025; 85610; 85730; 86850; 86900; 86923; 87040; 87070; 87077; 87081; 87086; 87186; 87205; 88112; 88305; 89051; 92950; 93005; 93306; 94002; 94003; 94150; 94640; 96365; 96366; 96375; J1100; J1170; J1265; J1644; J1940; J2250; J2354; J2543; J2704; J3360; J3370; J3411; J3490; J7060; J7620; P9047; Q9967; C9113; J0330; J1160; J1450; J2060; J2270; J2765; J2930; J7030; J7040; J7050; J7510; P9016